=== PATIENT | female | born 1985 | race Asian ===

== ENCOUNTER 2017-04-11 22:54 | Emergency (ER) | payer SELFPAY ==
[2017-04-11 23:48] LABS: Hematocrit 43 % (35-47); Hemoglobin 14.3 g/dl (12.0-16.0); Mean Corpuscular HGB Conc 34 g/dl (31-36); Mean Corpuscular Hemoglobin 31 pg (27-31); Mean Corpuscular Volume 91 fL (80-97); Mean Platelet Volume 9 um3 (7.4-10.4); Red Blood Count 4.69 10^6/ul (4.0-5.4); Red Cell Distribution Width 13 % (10.5-15); White Blood Count 9.4 10^3/ul (3.5-10.8)
[2017-04-12 00:03] LABS: Albumin 4.9 g/dL (3.2-5.2); BUN/Creatinine Ratio 15.7 (8-20); Calcium 9.4 mg/dL (8.6-10.3); EGFR African American 123.9 (>60); EGFR Non-African American 96.4 (>60); Globulin 2.8 g/dL (2-4); Potassium 3.2 mmol/L (3.5-5.0); Total Bilirubin 0.4 mg/dL (0.2-1.0); Total Protein 7.7 g/dL (6.4-8.9)
[2017-04-12 00:22] VITALS: BP 118/76
--- NOTE | 2017-04-12 00:58 | ED ---
- HPI Summary HPI Summary: 31F at 9 weeks presents with vaginal bleeding for 5 days. She has had an increase in vaginal bleeding for the past day. It was dark red and now is bright red. She is soaking a pad every 6 hours. She denies any lightheadedness or palpitations. She has mild abdominal cramping. She denies any n/v/d/c. She had a previous . She denies any other abdominal surgeries. She denies any dysuria, hematuria, or flank pain. She denies any fever. She has not seen her obgyn for this yet. - History of Current Complaint Chief Complaint: EDVaginalBleeding Stated Complaint: 9 WKS PREG/BLEEDING Time Seen by Provider: 04/11/17 23:13 Pain Intensity: 4 - Allergies/Home Medications Allergies/Adverse Reactions: Allergies Allergy/AdvReac Type Severity Reaction Status Date / Time No Known Allergies Allergy Verified 04/11/17 23:00 PMH/Surg Hx/FS Hx/Imm Hx Endocrine/Hematology History: Denies: Hx Anticoagulant Therapy Cardiovascular History: Denies: Hx Hypertension - Immunization History Immunizations Up to Date: Yes Infectious Disease History: No Infectious Disease History: Denies: Traveled Outside the [place] in Last 30 Days - Family History Known Family History: Negative: Blood Disorder - Social History Alcohol Use: None Substance Use Type: Reports: None Smoking Status (MU): Never Smoked Tobacco Review of Systems Negative: Fever Negative: Chest Pain Negative: Shortness Of Breath Positive: Abdominal Pain - mild cramping, Other - vaginal bleeding. Negative: Vomiting, Diarrhea, Nausea All Other Systems Reviewed And Are Negative: Yes Physical Exam - Physical Exam Triage Information Reviewed: Yes Vital Signs Reviewed: Yes Appearance: Positive: Well-Appearing Skin: Positive: Warm, Dry Head/Face: Positive: Normal Head/Face Inspection Eyes: Positive: Normal, Conjunctiva Clear Respiratory/Lung Sounds: Positive: Clear to Auscultation, Breath Sounds Present Cardiovascular: Positive: Normal, RRR Abdomen Description: Positive: Nontender, Soft, Other: - blood in vaginal canal , os open Bowel Sounds: Positive: Present Musculoskeletal: Positive: Normal Neurological: Positive: Normal Diagnostics - Vital Signs Vital Signs Temp Pulse Resp BP Pulse Ox 04/12/17 00:01 94 118/76 100 04/12/17 00:00 85 100 04/11/17 23:30 91 94/76 99 04/11/17 23:21 94 98 04/11/17 23:17 93 125/81 98 04/11/17 22:56 99.1 F 94 14 154/83 98 - Laboratory Lab Results: Lab Results 04/11/17 04/11/17 04/11/17 Range/Units 23:30 23:30 23:30 WBC 9.4 (3.5-10.8) 10^3/ul RBC 4.69 (4.0-5.4) 10^6/ul Hgb 14.3 (12.0-16.0) g/dl Hct 43 (35-47) % MCV 91 (80-97) fL MCH 31 (27-31) pg MCHC 34 (31-36) g/dl RDW 13 (10.5-15) % Plt Count 247 (150-450) 10^3/ul MPV 9 (7.4-10.4) um3 Neut % (Auto) 71.2 (38-83) % Lymph % (Auto) 23.3 L (25-47) % Assumption % (Auto) 4.2 (1-9) % Eos % (Auto) 0.9 (0-6) % Baso % (Auto) 0.4 (0-2) % Absolute Neuts (auto) 6.7 (1.5-7.7) 10^3/ul Absolute Lymphs (auto) 2.2 (1.0-4.8) 10^3/ul Absolute Monos (auto) 0.4 (0-0.8) 10^3/ul Absolute Eos (auto) 0.1 (0-0.6) 10^3/ul Absolute Basos (auto) 0 (0-0.2) 10^3/ul Absolute Nucleated RBC 0 10^3/ul Nucleated RBC % 0 INR (Anticoag Therapy) 0.97 (0.89-1.11) APTT 29.7 (26.0-36.3) seconds Sodium (133-145) mmol/L Potassium (3.5-5.0) mmol/L Chloride (101-111) mmol/L Carbon Dioxide (22-32) mmol/L Anion Gap (2-11) mmol/L BUN (6-24) mg/dL Creatinine (0.51-0.95) mg/dL Est GFR ( Amer) (>60) Est GFR (Non-Af Amer) (>60) BUN/Creatinine Ratio (8-20) Glucose (70-100) mg/dL Calcium (8.6-10.3) mg/dL Total Bilirubin (0.2-1.0) mg/dL AST (13-39) U/L ALT (7-52) U/L Alkaline Phosphatase (34-104) U/L Total Protein (6.4-8.9) g/dL Albumin (3.2-5.2) g/dL Globulin (2-4) g/dL Albumin/Globulin Ratio (1-3) Beta HCG, Quant mIU/mL Blood Type A Positive 04/11/17 Range/Units 23:30 WBC (3.5-10.8) 10^3/ul RBC (4.0-5.4) 10^6/ul Hgb (12.0-16.0) g/dl Hct (35-47) % MCV (80-97) fL MCH (27-31) pg MCHC (31-36) g/dl RDW (10.5-15) % Plt Count (150-450) 10^3/ul MPV (7.4-10.4) um3 Neut % (Auto) (38-83) % Lymph % (Auto) (25-47) % Assumption % (Auto) (1-9) % Eos % (Auto) (0-6) % Baso % (Auto) (0-2) % Absolute Neuts (auto) (1.5-7.7) 10^3/ul Absolute Lymphs (auto) (1.0-4.8) 10^3/ul Absolute Monos (auto) (0-0.8) 10^3/ul Absolute Eos (auto) (0-0.6) 10^3/ul Absolute Basos (auto) (0-0.2) 10^3/ul Absolute Nucleated RBC 10^3/ul Nucleated RBC % INR (Anticoag Therapy) (0.89-1.11) APTT (26.0-36.3) seconds Sodium 136 (133-145) mmol/L Potassium 3.2 L (3.5-5.0) mmol/L Chloride 105 (101-111) mmol/L Carbon Dioxide 23 (22-32) mmol/L Anion Gap 8 (2-11) mmol/L BUN 11 (6-24) mg/dL Creatinine 0.70 (0.51-0.95) mg/dL Est GFR ( Amer) 123.9 (>60) Est GFR (Non-Af Amer) 96.4 (>60) BUN/Creatinine Ratio 15.7 (8-20) Glucose 117 H (70-100) mg/dL Calcium 9.4 (8.6-10.3) mg/dL Total Bilirubin 0.40 (0.2-1.0) mg/dL AST 14 (13-39) U/L ALT 12 (7-52) U/L Alkaline Phosphatase 33 L (34-104) U/L Total Protein 7.7 (6.4-8.9) g/dL Albumin 4.9 (3.2-5.2) g/dL Globulin 2.8 (2-4) g/dL Albumin/Globulin Ratio 1.8 (1-3) Beta HCG, Quant 08962.00 mIU/mL Blood Type Result Diagrams: 04/11/17 23:30 04/11/17 23:30 Lab Statement: Any lab studies that have been ordered have been reviewed, and results considered in the medical decision making process. - Ultrasound No standard instances Ultrasound Interpretation: Positive (See Comments) - no heart rad with estimated gestational age of 6 weeks Ultrasound Interpretation Completed By: Radiologist Course/Dx - Course Course Of Treatment: 31F at 9 weeks presents with vaginal bleeding for 5 days. She has had an increase in vaginal bleeding for the past day. It was dark red and now is bright red. She is soaking a pad every 6 hours. She denies any lightheadedness or palpitations. She has mild abdominal cramping. She denies any n/v/d/c. She had a previous . She denies any other abdominal surgeries. She denies any dysuria, hematuria, or flank pain. She denies any fever. on exam abdomen soft nontender. pelvic exam blood in vagina with open os. u/s shows no hr. explained that this is likely a miscarriage. told to follow up with obgyn for continued care. patient understand and agrees with plan. - Differential Diagnosis/HQI/PQRI: Incomplete , Spontaneous , Threatened , Intrauterine - Diagnoses Provider Diagnoses: Vaginal bleeding in Discharge - Discharge Plan Condition: Good Disposition: HOME Patient Education Materials: Miscarriage (ED) Referrals: No Primary Care MICHELLE MahmoodCP [Primary Care Provider] - Staci Dumont MD [Medical Doctor] - Additional Instructions: Passed on your u/s it appears that you are likely having a miscarriage Follow up with obgyn within next week as will need levels trended, call tomorrow Take tyenlol for your pain Return to ED if develop severe abdominal pain, fever, severe bleeding with symptoms such as lightheadedness or any new or worsening symptoms
--- NOTE | 2017-04-12 07:48 | RAD ---
HISTORY: Vaginal bleeding, . Age by dates of 9 weeks and 1 day COMPARISONS: None TECHNIQUE: Multiple transverse and longitudinal ultrasound images were obtained of the pelvis using grayscale, color Doppler, spectral Doppler imaging and M-Mode Doppler imaging using the endovaginal transducer. FINDINGS: UTERUS: The uterus is normal in shape, size, contour, and echotexture. GESTATION: A single intrauterine gestation is identified.. The crown-rump length measures 0.36 cm for a gestational age of 6 weeks and 1 day. The CLEVE is November 15, 2017. This is discordant with the age by dates. cardiac motion is detected. Gross movement is not identified. anatomy cannot be assessed secondary to early dates. The amniotic fluid is qualitatively normal. There are no retroplacental fluid collections. CUL-DE-SAC: There is no free fluid within the cul-de-sac. RIGHT OVARY: The right ovary measures 3.7 x 1 x 3.5 cm. There is a hypoechoic rounded lesion of the right ovary measuring 1.2 x 0.8 x 1.5 cm in size. Normal arterial and venous waveforms are identifiable within the ovary on spectral Doppler imaging. LEFT OVARY: The left ovary measures 3 x 1.3 x 1.2 cm. No spectral tracings are submitted of the left ovary. BLADDER: The bladder is not well visualized. IMPRESSION: 1. SINGLE INTRAUTERINE GESTATION AT 6 WEEKS AND 1 DAY BY CROWN-RUMP LENGTH. NO CARDIAC MOTION IS DETECTED. 2. THIS MAY REPRESENT FAILED , THOUGH THIS MAY BE AN ARTIFACT OF EARLY DATES. RECOMMEND CONTINUED ATTENTION ON FOLLOW-UP IMAGING AND CORRELATION WITH SERIAL BETA-HCG LEVELS. 3. THE GESTATIONAL AGE BY CROWN-RUMP LENGTH IS 6 WEEKS AND 1 DAY, WHICH IS DISCORDANT WITH THE AGE BY DATES. 4. PROBABLE CORPUS LUTEUM OF THE RIGHT OVARY. RECOMMEND ATTENTION ON FOLLOW-UP IMAGING.
== END 2017-04-12 01:13 | disposition home or self-care (01) ==
LOC: ED 22:54
DX: O46.91 Antepartum hemorrhage, unspecified, first trimester (principal); Z3A.09 9 weeks gestation of pregnancy; R10.9 Unspecified abdominal pain
CPT/HCPCS: 36415; 76817; 80053; 84702; 85025; 85610; 85730; 86900; 86901; 87480; 87491; 87510; 87591; 99283